=== PATIENT | female | born 1950 | race Two or more races ===

== ENCOUNTER 2023-09-03 21:53 | Emergency (ER) | payer MEDICAID, OTHER ==
[~2023-09-03] VITALS: Ht 170.2 cm; Wt 65.9 kg
[2023-09-03] MEDS: PROPOFOL 10 MG/ML 20 ML IV ONE ×2 (00:48→00:57)
[2023-09-03] MEDS ORDERED: HYDROcodone-ACET 10/325MG TAB PO ONE (22:30)
[2023-09-03 23:25] VITALS: PULSE 69; RESP 15; TEMP 98; O2SAT 96
[2023-09-03] MEDS ORDERED: KETAMINE 50mg/ML 10ml Vial (500mg/10ml) IV ONE (23:30)
[2023-09-03] MEDS ORDERED: cloNIDine HCL 0.1 MG TAB PO ONE (23:30)
[2023-09-04] MEDS ORDERED: MIDAZOLAM HCL 2MG/2ML 2ml VIAL (1mg/ml) IV ONE (00:30)
[2023-09-04] MEDS: PROPOFOL 10 MG/ML 20 ML IV ONE ×2 (00:48→00:57)
[2023-09-04] MEDS ORDERED: IBUP-1454 PO (01:59)
[2023-09-04 02:55] VITALS: BP 124/69; PULSE 68; RESP 11; O2SAT 98
== END 2023-09-04 03:04 | disposition home or self-care (01) ==
LOC: ER 21:53
DX: S43.004A Unspecified dislocation of right shoulder joint, initial encounter (principal); E11.9 Type 2 diabetes mellitus without complications; I10 Essential (primary) hypertension; W18.09XA Striking against other object with subsequent fall, initial encounter; Y93.89 Activity, other specified; Y92.89 Other specified places as the place of occurrence of the external cause; Y99.8 Other external cause status
CPT/HCPCS: 23650; 73020; 73030; 93005; 99152; 99153; 99285; J2250; J2704; 96374

== ENCOUNTER 2025-08-23 14:26 | Emergency (ER) | payer OTHER, MEDICAID ==
[~2025-08-23] VITALS: Ht 157.5 cm; Wt 84.0 kg
[~2025-08-23 14:26] MED LIST: IBUP-1454 PO
--- NOTE | 2025-08-23 15:56 | ED.PDOC ---
Musculoskeletal HPI Comments 74 year old female with PMHx HTN, DM presents to the ED with a chief complaint of LT hip pain onset today. Patient states she was walking, slipped, landed on her buttocks, LT leg slid under fridge. She is currently experiencing LT hip pain, LT pelvic pain, LT knee pain. Denies LOC, head injury, nausea, vomiting, shortness of breath, numbness/tingling, dizziness, blurred vision. No other symptoms or modifying factors present at this time. Chief Complaint: Fall Injury Time Seen by MD: 15:45 Reviewed Notes: Medications, Allergies Allergies: Coded Allergies: NO KNOWN ALLERGIES (Unverified , 09/03/23) Home Meds Active Scripts Ibuprofen (Ibuprofen) 600 Mg Tab, 1 TAB PO TID PRN for 10 Days, #30 TAB Prov:ERIC SALDIVAR DO 09/04/23 Information Source: Patient, Relative Mode of Arrival: Wheelchair Location: Left Extremity Location: Hip Timing: Hours Prehospital treatment: None Severity: Moderate Able to Move Extremity: Yes Bear Weight: Limited Pain: Moderate Mechanism: Spontaneous Circumstances: Fall Onset of Symptoms: After Trauma Symptoms: Pain DVT Risk Factors: NONE Associated signs and symptoms: Leg pain, Hip pain Past Medical History PAST MEDICAL HISTORY: DM, HTN Surgical History: Denies all surgeries 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 UP MACHINE OPERATOR History Family History Family History: Unknown Social History Smoker: Non-Smoker Alcohol: Denies ETOH Use Drugs: Denies Drug Use Lives In: Home Constitutional: denies: chills, diaphoresis, fatigue, fever, malaise, sweats, weakness, others EENTM: denies: blurred vision, double vision, ear bleeding, ear discharge, ear drainage, ear pain, ear ringing, eye pain, eye redness, hearing loss, mouth pain, mouth swelling, nasal discharge, nose bleeding, nose congestion, nose pain, photophobia, tearing, throat pain, throat swelling, voice changes, others Respiratory: denies: cough, hemoptysis, orthopnea, SOB at rest, shortness of breath, SOB with excertion, stridor, wheezing, others Cardiovascular: denies: chest pain, dizzy spells, diaphoresis, Dyspnea on exertion, edema, irregular heart beat, left arm pain, lightheadedness, palpitations, PND, syncope, others Gastrointestinal: denies: abdomen distended, abdominal pain, blood streaked bowels, constipated, diarrhea, dysphagia, difficulty swallowing, hematemesis, melena, nausea, poor appetite, poor fluid intake, rectal bleeding, rectal pain, vomiting, others Genitourinary: denies: abnormal vagina bleeding, burning, dyspareunia, dysuria, flank pain, frequency, hematuria, incontinence, pain, , vagina discharge, urgency, others Neurological: denies: dizziness, fainting, headache, left sided numbness, left sided weakness, numbness, paresthesia, pre-existing deficit, right sided numbness, right sided weakness, seizure, speech problems, tingling, tremors, weakness, others Musculoskeletal: reports: others (LT pelvic pain, LT hip pain); denies: back pain, gout, joint pain, joint swelling, muscle pain, muscle stiffness, neck pain Integumetry: denies: bruises, change in color, change in hair/nails, dryness, laceration, lesions, lumps, rash, wounds, others Allergic/Immunocompromised: denies: Difficulty Healing, Frequent Infections, Hives, Itching, others Hematologic/Lymphatic: denies: anemia, blood clots, easy bleeding, easy bruising, swollen glands, others Endocrine: denies: excessive hunger, excessive sweating, excessive thirst, excessive urination, flushing, intolerance to cold, intolerance to heat, unexplained weight gain, unexplained weight loss, others Psychiatric: denies: anxiety, bipolar disorder, depression, hopeless, panic disorder, schizophrenia, sleepless, suicidal, others All Other Systems: Reviewed and Negative Physical Exam General Appearance: Moderate Distress, Normal HEENT: Normal ENT Inspection, Pharynx Normal, TMs Normal Neck: Full Range of Motion, Non-Tender, Normal, Normal Inspection Respiratory: Chest Non-Tender, Lungs Clear, No Accessory Muscle Use, No Respiratory Distress, Normal Breath Sounds Cardiovascular: No Edema, No JVD, No Murmur, No Gallop, Normal Peripheral Pulses, Regular Rate/Rhythm Breast Exam: Deferred Gastrointestinal: No Organomegaly, Non Tender, No Pulsatile Mass, Normal Bowel Sounds, Soft Genitalia: Deferred Pelvic: Deferred Rectal: Deferred Extremities: No calf tenderness, Normal capillary refill, Normal inspection, Normal range of motion, Non-tender, No pedal edema Musculoskeletal : Apperance: Normal Neurologic: Alert, 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 Was a procedure done?: No Differential Diagnosis EXT Differential Diagnosis: Fracture, Sprain, Strain X-Ray, Labs, Meds, VS Vital Signs Date Time Temp Pulse Resp B/P (MAP) Pulse Ox O2 Delivery O2 Flow Rate FiO2 08/23/25 16:35 97.7 68 16 186/104 (131) 98 97.7 08/23/25 14:28 98.0 67 14 190/92 98 98.0 Patient alert. States that she has fell prior to coming to the ER. Complaining of left hip pain. Vitals stable. Answering questions. Blood pressure elevated. Was given clonidine. Was given [place]. Pelvic x-ray does show femur fracture. Explained to the patient. Spoke with Luque [phone]. Time of 1ST Reevaluation: 16:15 Reevaluation 1ST: Improved Patient Education/Counseling: Diagnosis, Treatment, Prognosis Family Education/Counseling: Diagnosis, Treatment, Prognosis Departure 1 Departure Time of Disposition: 16:20 Impression: Primary Impression: Femoral fracture Qualified Codes: S72.045A - Nondisplaced fracture of base of neck of left femur, initial encounter for closed fracture Additional Impression: Hypertensive urgency Disposition: 02 SHORT TERM HOSPITAL Admit to: Med Surg Condition: Guarded Critical Care Note Critical Care Time?: No Stability Stability form required: No Heart Score Heart Score: Heart Score Response (Comments) Value History N/A 0 EKG N/A 0 Age N/A 0 Risk Factors N/A 0 Troponin N/A 0 Total 0 I personally scribed for MEKHI POWERS MD ([email or web address]) on 08/23/25 at 15:56. Electronically submitted by Nicole Rosas ([email or web address]). MEKHI POWERS MD Aug 23, 2025 15:56
--- NOTE | 2025-08-23 16:51 | DVH ---
Indication: fall Technique: XY PELVIS APXY Comparison: None FINDINGS/IMPRESSION: Findings suggestive of left femoral neck fracture. Recommend CT of the left hip to further evaluate. 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 [id number] degenerate changes right hip. Osteopenia. [id number] bilateral sacroiliac degenerative joint disease.
[2025-08-23 18:05] LABS: Hematocrit 39.5 % (36.0-46.0); Hemoglobin 13.4 g/dL (12.2-16.2); Mean Corpuscular Hemoglobin 30.1 pg (28.0-32.0); Mean Corpuscular Volume 89.1 fL (80.0-100.0); Nucleated Red Blood Cells % 0.1 %
[2025-08-23 18:13] LABS: Anion Gap 9 (5-15); Carbon Dioxide 27 mmol/L (20-31); Chloride 106 mmol/L (98-107); Potassium 4.2 mmol/L (3.5-5.1); Sodium 142 mmol/L (136-145)
[2025-08-23 18:15] LABS: Calcium 10.2 mg/dL (8.7-10.4)
[2025-08-23 18:19] LABS: BUN/Creatinine Ratio 23.1 (10.0-20.0); Blood Urea Nitrogen 18 mg/dL (9-23)
[2025-08-23 18:21] LABS: Glucose 111 mg/dL (74-106)
[2025-08-23] MEDS: HYDROcodone-ACET 10/325MG TAB PO ONE (18:28)
[2025-08-23 18:46] LABS: Urine Protein, UAD Negative (Negative)
[2025-08-23 19:59] VITALS: BP 129/67; PULSE 59; RESP 17; TEMP 97.7; O2SAT 96
== END 2025-08-23 20:00 | disposition short-term general hospital (02) ==
LOC: ER 14:26
DX: S72.045A Nondisplaced fracture of base of neck of left femur, initial encounter for closed fracture (principal); I16.0 Hypertensive urgency; E11.9 Type 2 diabetes mellitus without complications; I10 Essential (primary) hypertension; M19.90 Unspecified osteoarthritis, unspecified site; M46.1 Sacroiliitis, not elsewhere classified; W01.0XXA Fall on same level from slipping, tripping and stumbling without subsequent striking against object, initial encounter; Y93.01 Activity, walking, marching and hiking; Y92.89 Other specified places as the place of occurrence of the external cause; Y99.8 Other external cause status
CPT/HCPCS: 36415; 72170; 80048; 81001; 85025